=== PATIENT | male | born 1935 | race Caucasian/White ===

== ENCOUNTER 2019-10-11 08:13 | Day surgery (SDC) | payer MEDICARE, OTHER ==
[~2019-10-11 08:13] MED LIST: Acetaminophen/HYDROcodone 325-5 MG Tab PO PRN; Sodium Chloride 0.9% 10 ML Syringe FLUSH PRN
[2019-10-11] MEDS: Lactated Ringers 1,000 ML IV SCH (09:31)
[2019-10-11] MEDS: ceFAZolin 1 GM in Sodium Chloride 0.9% 50 ML IV ONE (10:15)
[2019-10-11] MEDS ORDERED: Propofol 200 MG/20 ML SDV ONE (10:30)
[2019-10-11 15:07] VITALS: BP 165/69; PULSE 81
--- NOTE | 2019-10-12 07:53 | OR ---
DATE OF OPERATION: 10/11/2019 SURGEON: Jefe Henson MD PREOPERATIVE DIAGNOSIS: Right carpal tunnel syndrome. POSTOPERATIVE DIAGNOSIS: Right carpal tunnel syndrome. PROCEDURE: Right carpal tunnel release. ANESTHESIA: Monitored anesthesia care. ESTIMATED BLOOD LOSS: Minimal. COMPLICATIONS: None apparent. SPECIMENS: None. DRAINS: None. DESCRIPTION OF PROCEDURE: After informed consent was obtained, the patient was brought to the operating room, where a general anesthetic was administered uneventfully. The right wrist was prepped and draped sterilely. A time-out was held, and antibiotics were confirmed. The limb was exsanguinated and the tourniquet inflated. An incision was made in line with the radial border of the ring finger from a line shy of Damian's cardinal line to the volar wrist crease. We dissected sharply through the skin and subcutaneous tissue and palmar aponeurosis down onto the transverse carpal ligament. This was released in its entirety from proximal to distal with distal aspect of the volar antebrachial fascia released with tenotomies. We inspected the median nerve and its motor branch, which were intact with no space-occupying lesions in the carpal canal. We copiously irrigated and closed with 4-0 nylon. Sterile dressings were applied. The patient was brought to recovery room in stable condition having tolerated the procedure well with no apparent complications. REBECA/MARKO /[id number]
== END 2019-10-11 12:25 | disposition home or self-care (01) ==
LOC: LB.SDS 08:13
PROVIDERS: ATTEND Orthopaedic Surgery
DX: G56.01 Carpal tunnel syndrome, right upper limb (principal)
CPT/HCPCS: J0690; J2704; J7050; J7120

== ENCOUNTER → 2019-10-18 | Outpatient (CLI) | payer MEDICARE, OTHER | LOC: LB.COAG 13:35 | PROVIDERS: ATTEND Family Medicine | DX: I48.91 Unspecified atrial fibrillation (principal); Z79.01 Long term (current) use of anticoagulants | CPT/HCPCS: 85610 ==

== ENCOUNTER 2021-04-13 10:24 | Emergency (ER) | payer MEDICARE, OTHER ==
[2021-04-13] MEDS ORDERED: Sodium Chloride 0.9% 10 ML Syringe FLUSH PRN (11:18)
[2021-04-13] MEDS ORDERED: Magnesium Sulfate/D5W 1 GM/100 ML Premix Bag IV SCH (11:30)
--- NOTE | 2021-04-13 11:42 | EDM.PDOC ---
ED HPI GENERAL MEDICAL PROBLEM - General Stated Complaint: ABNORMAL LABS Time Seen by Provider: 04/13/21 11:35 Source of Information: Reports: Patient, Family History Limitations: Reports: No Limitations - History of Present Illness INITIAL COMMENTS - FREE TEXT/NARRATIVE: 86 year old male with PMG of afib, HTN, hyperlipidemia, thyroid presents today after not feeling well for a few weeks. He was at clinic and had his labs done showing critically low Magnesium at 0.2. He denies any CP, abdominal pain, n/v, ROSAS, fever, sore throat. States he has been dizzy and weaker than normal. - Related Data Allergies Allergy/AdvReac Type Severity Reaction Status Date / Time No Known Allergies Allergy Verified 10/11/19 07:32 Home Meds: Home Meds Cyanocobalamin (Vitamin B-12) [B-12] 1,000 mcg PO DAILY 10/21/15 [History] Lisinopril 5 mg PO DAILY 10/21/15 [History] Metoprolol Succinate 50 mg PO DAILY 10/21/15 [History] Omeprazole 20 mg PO DAILY 10/21/15 [History] Simvastatin 60 mg PO DAILY 10/21/15 [History] Warfarin [Coumadin] 2.5 mg PO DAILY 10/21/15 [History] Levothyroxine 25 mcg PO DAILY 06/22/18 [History] hydroCHLOROthiazide [Hydrochlorothiazide] 25 mg PO DAILY 10/11/19 [History] Past Medical History Other HEENT History: glasses Cardiovascular History: Reports: Afib, Hypertension Gastrointestinal History: Reports: GERD Musculoskeletal History: Reports: Other (See Below) Other Musculoskeletal History: osteopenia. 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 Social & Family History - Family History Family Medical History: No Pertinent Family History - Caffeine Use Caffeine Use: Reports: Coffee ED ROS GENERAL - Review of Systems Review Of Systems: See Below Constitutional: Reports: No Symptoms Respiratory: Reports: No Symptoms Cardiovascular: Reports: Dyspnea on Exertion Endocrine: Reports: No Symptoms GI/Abdominal: Reports: Diarrhea : Reports: No Symptoms Musculoskeletal: Reports: No Symptoms Skin: Reports: No Symptoms Neurological: Reports: Dizziness Psychiatric: Reports: No Symptoms Hematologic/Lymphatic: Reports: No Symptoms Immunologic: Reports: No Symptoms ED EXAM, GENERAL - Physical Exam Exam: See Below Exam Limited By: No Limitations General Appearance: Alert, No Apparent Distress Eye Exam: Bilateral Eye: Normal Inspection, PERRL Ears: Normal External Exam, Normal Canal, Hearing Grossly Normal, Normal TMs Ear Exam: Bilateral Ear: Auricle Normal, Canal Normal, TM normal Nose: Normal Inspection, Normal Mucosa, No Blood Throat/Mouth: Normal Inspection, Normal Lips, Normal Oropharynx, Normal Voice, No Airway Compromise Head: Atraumatic Neck: Normal Inspection, Non-Tender, Full Range of Motion Respiratory/Chest: No Respiratory Distress, Lungs Clear, Normal Breath Sounds, No Accessory Muscle Use, Chest Non-Tender Cardiovascular: Normal Peripheral Pulses, No Edema, No JVD, No Murmur, Irregularly Irregular Peripheral Pulses: 3+: Carotid (L), Carotid (R), Radial (L), Radial (R), Posterior Tibial (L), Posterior Tibial (R), Dorsalis Pedis (L), Dorsalis Pedis (R) GI/Abdominal: Normal Bowel Sounds, Soft, Non-Tender, No Distention (Male) Exam: Deferred Rectal (Males) Exam: Deferred Back Exam: Normal Inspection, Full Range of Motion Extremities: Normal Inspection, Non-Tender, No Pedal Edema, Normal Capillary Refill, Limited Range of Motion, Other (bilateral shoulder pain, chronic) Neurological: Alert, Oriented, CN II-XII Intact, Normal Cognition, Normal Gait, Normal Reflexes (no hyperreflexes), No Motor/Sensory Deficits Psychiatric: Normal Affect, Normal Mood Skin Exam: Warm, Dry, Intact, Normal Color, No Rash Lymphatic: No Adenopathy Course - Vital Signs Last Recorded V/S: Last Vital Signs Temp 98.0 F 04/13/21 11:45 Pulse 82 04/13/21 11:45 Resp 28 H 04/13/21 11:45 BP 122/78 04/13/21 11:45 Pulse Ox 95 04/13/21 11:45 - Orders/Labs/Meds Orders: Active Orders 24 hr Category Date Time Status EKG Documentation Completion [RC] ASDIRECTED Care 04/13/21 11:18 Active Magnesium Sulfate/D5W [Magnesium Sulfate in D5W 1 GM/ Med 04/13/21 11:30 Active 100 ML] 1 gm IV DAILY Sodium Chloride 0.9% [Saline Flush] Med 04/13/21 11:18 Active 10 ml FLUSH ASDIRECTED PRN Peripheral IV Insertion Adult [OM.PC] Routine Oth 04/13/21 11:18 Ordered EKG 12 Lead [EK] Routine Ther 04/13/21 11:18 Ordered Medication Orders Magnesium Sulfate/Dextrose (Magnesium Sulfate/D5w 1 Gm/100 Ml Premix Bag) 1 gm IV DAILY GERALD Last Admin: 04/13/21 11:30 Dose: 1 gm Documented by: ROSEANN Sodium Chloride (Sodium Chloride 0.9% 10 Ml Syringe) 10 ml FLUSH ASDIRECTED PRN PRN Reason: Keep Vein Open Last Admin: 04/13/21 11:40 Dose: 10 ml Documented by: ROSEANN Labs: Laboratory Tests 04/13/21 04/13/21 04/13/21 Range/Units 09:05 11:39 11:44 WBC 8.8 (4.0-11.0) K/uL RBC 3.97 L (4.50-6.50) M/uL Hgb 12.4 L (13.0-18.0) g/dL Hct 38.7 L (40.0-54.0) % MCV 98 H (76-96) fL MCH 31.2 (27.0-32.0) pg MCHC 32.0 (31.0-35.0) g/dL RDW 13.1 (11.0-16.0) % Plt Count 233 (150-400) K/uL MPV 11.1 H (6.0-10.0) fL Neut % (Auto) 59.4 (45.0-70.0) % Lymph % (Auto) 29.0 (20.0-40.0) % [place] % (Auto) 10.3 H (3.0-10.0) % Eos % (Auto) 1.0 (1.0-5.0) % Baso % (Auto) 0.3 (0.0-0.5) % Neut # (Auto) 5.21 (2.00-7.50) K/uL Lymph # (Auto) 2.54 (1.50-4.00) K/uL [place] # (Auto) 0.90 H (0.20-0.80) K/uL Eos # (Auto) 0.09 (0.04-0.40) K/uL Baso # (Auto) 0.03 (0.02-0.10) K/uL PT 60.7 H D (9.0-11.5) sec INR 6.1 H* D (1.0-3.5) Sodium 131 L (136-145) mmol/L Potassium 2.7 L* D (3.5-5.1) mmol/L Chloride 96 L (98-107) mmol/L Carbon Dioxide 26.8 (21.0-32.0) mmol/L Anion Gap 10.9 (5.0-15.0) mmol/L BUN 32 H D (8-26) mg/dL Creatinine 1.22 (0.70-1.30) mg/dL Est Cr Clr Drug Dosing TNP Estimated GFR (MDRD) 56 L (>60) MLS/MIN BUN/Creatinine Ratio 26.2 H (6-25) Glucose 82 (74-100) mg/dL Calcium 6.8 L (8.5-10.1) mg/dL Magnesium 0.2 L* (1.8-2.4) mg/dL Total Bilirubin 1.2 H (0.0-1.0) mg/dL AST 28 (15-37) U/L ALT 14 (12-78) U/L Alkaline Phosphatase 82 (46-116) U/L Troponin I < 0.017 (0.000-0.060) ng/mL B-Natriuretic Peptide 1699 H (0-450) pg/mL Total Protein 8.2 (6.4-8.2) g/dL Albumin 3.5 (3.4-5.0) g/dL Globulin 4.7 H (2.2-4.2) g/dL Albumin/Globulin Ratio 0.7 L (0.8-2.0) TSH, Ultra Sensitive 3.628 (0.358-3.740) uIU/mL SARS-CoV-2 RNA (CORNELIUS) (NEGATIVE) 04/13/21 Range/Units 13:00 WBC (4.0-11.0) K/uL RBC (4.50-6.50) M/uL Hgb (13.0-18.0) g/dL Hct (40.0-54.0) % MCV (76-96) fL MCH (27.0-32.0) pg MCHC (31.0-35.0) g/dL RDW (11.0-16.0) % Plt Count (150-400) K/uL MPV (6.0-10.0) fL Neut % (Auto) (45.0-70.0) % Lymph % (Auto) (20.0-40.0) % [place] % (Auto) (3.0-10.0) % Eos % (Auto) (1.0-5.0) % Baso % (Auto) (0.0-0.5) % Neut # (Auto) (2.00-7.50) K/uL Lymph # (Auto) (1.50-4.00) K/uL [place] # (Auto) (0.20-0.80) K/uL Eos # (Auto) (0.04-0.40) K/uL Baso # (Auto) (0.02-0.10) K/uL PT (9.0-11.5) sec INR (1.0-3.5) Sodium (136-145) mmol/L Potassium (3.5-5.1) mmol/L Chloride (98-107) mmol/L Carbon Dioxide (21.0-32.0) mmol/L Anion Gap (5.0-15.0) mmol/L BUN (8-26) mg/dL Creatinine (0.70-1.30) mg/dL Est Cr Clr Drug Dosing Estimated GFR (MDRD) (>60) MLS/MIN BUN/Creatinine Ratio (6-25) Glucose (74-100) mg/dL Calcium (8.5-10.1) mg/dL Magnesium (1.8-2.4) mg/dL Total Bilirubin (0.0-1.0) mg/dL AST (15-37) U/L ALT (12-78) U/L Alkaline Phosphatase (46-116) U/L Troponin I (0.000-0.060) ng/mL B-Natriuretic Peptide (0-450) pg/mL Total Protein (6.4-8.2) g/dL Albumin (3.4-5.0) g/dL Globulin (2.2-4.2) g/dL Albumin/Globulin Ratio (0.8-2.0) TSH, Ultra Sensitive (0.358-3.740) uIU/mL SARS-CoV-2 RNA (CORNELIUS) Negative (NEGATIVE) Meds: Medications Generic Name Dose Route Start Last Admin Trade Name Trang PRN Reason Stop Dose Admin Magnesium Sulfate/Dextrose 1 gm 04/13/21 11:30 04/13/21 11:30 Magnesium Sulfate/D5w 1 Gm/100 Ml Premix Bag IV 1 gm DAILY GERALD Administration Sodium Chloride 10 ml 04/13/21 11:18 04/13/21 11:40 Sodium Chloride 0.9% 10 Ml Syringe FLUSH 10 ml ASDIRECTED PRN Administration Keep Vein Open Discontinued Medications Generic Name Dose Route Start Last Admin Trade Name Trang PRN Reason Stop Dose Admin Potassium Chloride 10 meq/ 50 mls @ 50 mls/hr 04/13/21 12:37 04/13/21 12:35 Premix IV 04/13/21 13:36 50 mls/hr ONETIME ONE Administration Potassium Chloride 10 meq/ 50 mls @ 50 mls/hr 04/13/21 13:29 04/13/21 13:30 Premix IV 04/13/21 14:28 50 mls/hr ONETIME ONE Administration Potassium Chloride Confirm 04/13/21 13:42 Kcl In Water 10 Meq/50 Ml Administered 04/13/21 13:43 Dose 50 mls @ as directed .ROUTE .STK-MED ONE Potassium Chloride Confirm 04/13/21 14:38 Kcl In Water 10 Meq/50 Ml Administered 04/13/21 14:39 Dose 50 mls @ as directed .ROUTE .STK-MED ONE Magnesium Sulfate/Dextrose Confirm 04/13/21 14:51 Magnesium Sulfate In D5w 1 Gm/100 Ml Administered 04/13/21 14:52 Dose 1 gm in 100 mls @ as directed .ROUTE .STK-MED ONE Magnesium Sulfate/Dextrose 1 gm 04/13/21 13:15 04/13/21 13:58 Magnesium Sulfate/D5w 1 Gm/100 Ml Premix Bag IV 04/13/21 13:16 1 gm ONETIME ONE Administration Potassium Chloride 40 meq 04/13/21 12:36 04/13/21 12:30 Potassium Chloride 20 Meq Tab.Er PO 04/13/21 12:37 40 meq ONETIME ONE Administration Departure - Departure Time of Disposition: 14:56 Disposition: DC/Tfer to Acute Hospital 02 Condition: Good Clinical Impression: CHF, Congestive heart failure, Hypokalemia, Hypomagnesemia, Prolonged QT syndrome, Hypocalcemia, Anticoagulated on Coumadin - Discharge Information *PRESCRIPTION DRUG MONITORING PROGRAM REVIEWED*: Not Applicable *COPY OF PRESCRIPTION DRUG MONITORING REPORT IN PATIENT ABISAI: Not Applicable Instructions: Heart Failure, Self Care, Aflp-gb-Dews, Hypomagnesemia, H ypokalemia, Hypocalcemia, Adult Referrals: PCP,None [Primary Care Provider] - Sepsis Event Note (ED) - Focused Exam Vital Signs: Vital Signs Temp Pulse Resp BP Pulse Ox 04/13/21 11:45 98.0 F 82 28 H 122/78 95 - My Orders Last 24 Hours: My Active Orders 04/13/21 11:18 EKG Documentation Completion [RC] ASDIRECTED Sodium Chloride 0.9% [Saline Flush] 10 ml FLUSH ASDIRECTED PRN Peripheral IV Insertion Adult [OM.PC] Routine EKG 12 Lead [EK] Routine 04/13/21 11:30 Magnesium Sulfate/D5W [Magnesium Sulfate in D5W 1 GM/100 ML] 1 gm IV DAILY - Assessment/Plan Last 24 Hours: My Active Orders 04/13/21 11:18 EKG Documentation Completion [RC] ASDIRECTED Sodium Chloride 0.9% [Saline Flush] 10 ml FLUSH ASDIRECTED PRN Peripheral IV Insertion Adult [OM.PC] Routine EKG 12 Lead [EK] Routine 04/13/21 11:30 Magnesium Sulfate/D5W [Magnesium Sulfate in D5W 1 GM/100 ML] 1 gm IV DAILY Plan: Spoke with Dr. Mcmahon in [place], he is accepting the patient. He will fly and continue magnesium and potassium replacements infusing.
[2021-04-13] MEDS ORDERED: Potassium Chloride 20 MEQ Tab.ER PO ONE (12:36)
[2021-04-13] MEDS ORDERED: Potassium Chloride Riders 10 MEQ in Premix Bag 1 BAG IV ONE ×2 (12:37→13:29)
[2021-04-13 12:56] VITALS: BP 122/78; PULSE 82
[2021-04-13] MEDS: Magnesium Sulfate/D5W 1 GM/100 ML Premix Bag IV ONE ×2 (13:30→13:58)
[2021-04-13] MEDS ORDERED: Potassium Chloride Riders 50 ML ONE ×2 (13:42→14:38)
--- NOTE | 2021-04-13 13:49 | PCM.EKG ---
#1 Interpretation EKG Date: 04/13/21 Time: 11:47 Rhythm: A-Fib Rate (Beats/Min): 92 QT: Prolonged Comparison: Change From Previous EKG EKG Interpretation Comments: prolonged QT/QTC
[2021-04-13] MEDS ORDERED: Magnesium Sulfate/D5W 1 GM/100 ML BAG ONE (14:51)
== END 2021-04-13 15:10 ==
LOC: LB.ED 10:24
DX: I11.0 Hypertensive heart disease with heart failure (principal); I50.9 Heart failure, unspecified; E87.6 Hypokalemia; E83.42 Hypomagnesemia; E83.51 Hypocalcemia; R94.31 Abnormal electrocardiogram [ECG] [EKG]; K21.9 Gastro-esophageal reflux disease without esophagitis; I48.91 Unspecified atrial fibrillation; Z79.01 Long term (current) use of anticoagulants; Z79.899 Other long term (current) drug therapy; Z20.822 Contact with and (suspected) exposure to COVID-19
CPT/HCPCS: 36415; 80053; 82040; 82550; 83735; 83880; 83970; 84075; 84443; 84484; 85025; 85610; 93005; 96365; 96366; 96375; 99285; 99285-25; A9270-GY; J3475; J3480; U0002

== ENCOUNTER 2021-04-18 10:58 | Inpatient (IN) | payer MEDICARE, OTHER ==
[2021-04-19] MEDS ORDERED: Tuberculin, PPD 5 Units/0.1 ML 1 ML MDV IDERM ONE (15:04)
[2021-04-19] MEDS: Multivitamins with Iron/Calcium/Folic Acid/Minerals Tab PO SCH (20:00)
[2021-04-19] MEDS: metroNIDAZOLE 500 MG Tab PO SCH (20:04)
[2021-04-19] MEDS: Magnesium Oxide 400 MG Tab PO SCH (20:04)
[2021-04-19] MEDS: levETIRAcetam 500 MG Tab PO SCH (20:04)
[2021-04-20] MEDS: Omeprazole 20 MG Cap.CR PO SCH (07:15)
[2021-04-20] MEDS: Levothyroxine 25 MCG Tab PO SCH (07:15)
[2021-04-20] MEDS: Simvastatin 20 MG Tab PO SCH (08:12)
[2021-04-20] MEDS: Thiamine 100 MG Tab PO SCH (08:12)
[2021-04-20] MEDS: levETIRAcetam 500 MG Tab PO SCH ×2 (08:13→19:08)
[2021-04-20] MEDS: metroNIDAZOLE 500 MG Tab PO SCH ×3 (08:13→19:10)
[2021-04-20] MEDS: Magnesium Oxide 400 MG Tab PO SCH ×2 (08:13→19:09)
[2021-04-20] MEDS: Folic Acid 1 MG Tab PO SCH (08:13)
[2021-04-20] MEDS: Metoprolol Succinate 50 MG Tab.ER PO SCH (08:13)
[2021-04-20] MEDS: Lisinopril 10 MG Tab PO SCH (08:14)
[2021-04-20] MEDS: Cyanocobalamin (Vitamin B12) 1,000 MCG Tab PO SCH (08:17)
[2021-04-20] MEDS: Multivitamins with Iron/Calcium/Folic Acid/Minerals Tab PO SCH ×2 (08:17→19:09)
--- NOTE | 2021-04-20 08:43 | ADMIT ---
Transferred from [facility]. ADMITTING DIAGNOSIS: Hypomagnesemia and seizure disorder. HISTORY OF PRESENT ILLNESS: This is an 86-year-old male patient, who was previously seen at this clinic. In the recent past, he was having difficulty with magnesium levels being extremely low. He was contacted by clinic to present to the emergency department for evaluation and treatment. At that time, he was airlifted to [place] where his condition was managed. During helicopter transport, apparently did have seizure and that was addressed in [facility] too. He was admitted to swing bed at this institution today feeling relatively well without any major concerns or complaints other than chest tenderness after CPR. PAST MEDICAL HISTORY: Notable for: 1. GERD. 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 3. CHF. 4. Ongoing electrolyte imbalance. 5. Hyperlipidemia. 6. Hypertension. 7. Hypocalcemia. 8. DJD. 9. Osteopenia. 10.Subclinical hypothyroidism. MEDICATIONS: See orders from transfer from [facility]. ALLERGIES: NONE. REVIEW OF SYSTEMS: As per HPI above. Otherwise, he is without complaints. He did have aspiration pneumonia and treated; however, he states he is breathing relatively well at this time. PHYSICAL EXAMINATION: VITAL SIGNS: Reviewed in nursing notes. GENERAL APPEARANCE: Satisfactory. Mood and affect are bright and happy. HEAD AND NECK: No JVD noted. CARDIOPULMONARY: Heart tones regular with normal S1, S2 without murmur. LUNGS: Sounds are generally clear with minimal rhonchi over large airways. ABDOMEN: Benign. Bowel sounds are present. He does have some tenderness to palpation over the anterior chest wall consistent with costochondritis. I have not reviewed any x-rays for evidence of fracture. IMPRESSIONS: Admission to swing bed for recovery from low magnesium, seizure disorder and cardiac dysfunction. SITA/MARKO /[id number]
[2021-04-20] MEDS: Acetaminophen 325 MG Tab PO PRN (13:33)
[2021-04-20] MEDS: Warfarin 5 MG Tab PO SCH (17:31)
[2021-04-21] MEDS: Omeprazole 20 MG Cap.CR PO SCH (07:18)
[2021-04-21] MEDS: Acetaminophen 325 MG Tab PO PRN ×3 (07:18→19:33)
[2021-04-21] MEDS: Levothyroxine 25 MCG Tab PO SCH (07:18)
[2021-04-21] MEDS: Simvastatin 20 MG Tab PO SCH (08:18)
[2021-04-21] MEDS: Magnesium Oxide 400 MG Tab PO SCH ×2 (08:18→19:32)
[2021-04-21] MEDS: Thiamine 100 MG Tab PO SCH (08:18)
[2021-04-21] MEDS: Metoprolol Succinate 50 MG Tab.ER PO SCH (08:19)
[2021-04-21] MEDS: levETIRAcetam 500 MG Tab PO SCH ×2 (08:19→19:32)
[2021-04-21] MEDS: Lisinopril 10 MG Tab PO SCH (08:19)
[2021-04-21] MEDS: metroNIDAZOLE 500 MG Tab PO SCH ×3 (08:19→19:33)
[2021-04-21] MEDS: Multivitamins with Iron/Calcium/Folic Acid/Minerals Tab PO SCH ×2 (08:19→19:32)
[2021-04-21] MEDS: Folic Acid 1 MG Tab PO SCH (08:19)
[2021-04-21] MEDS: Cyanocobalamin (Vitamin B12) 1,000 MCG Tab PO SCH (08:20)
[2021-04-21] MEDS: Warfarin 5 MG Tab PO SCH (17:10)
[2021-04-22] MEDS: Acetaminophen 325 MG Tab PO PRN ×3 (04:47→19:05)
[2021-04-22] MEDS: Omeprazole 20 MG Cap.CR PO SCH (06:27)
[2021-04-22] MEDS: Levothyroxine 25 MCG Tab PO SCH (06:27)
[2021-04-22] MEDS: Thiamine 100 MG Tab PO SCH (07:55)
[2021-04-22] MEDS: Simvastatin 20 MG Tab PO SCH (07:55)
[2021-04-22] MEDS: Multivitamins with Iron/Calcium/Folic Acid/Minerals Tab PO SCH ×2 (07:55→19:06)
[2021-04-22] MEDS: Lisinopril 10 MG Tab PO SCH (07:56)
[2021-04-22] MEDS: metroNIDAZOLE 500 MG Tab PO SCH ×3 (07:56→19:06)
[2021-04-22] MEDS: Metoprolol Succinate 50 MG Tab.ER PO SCH (07:56)
[2021-04-22] MEDS: levETIRAcetam 500 MG Tab PO SCH ×2 (07:56→19:07)
[2021-04-22] MEDS: Folic Acid 1 MG Tab PO SCH (07:56)
[2021-04-22] MEDS: Cyanocobalamin (Vitamin B12) 1,000 MCG Tab PO SCH (07:58)
[2021-04-22] MEDS: Magnesium Oxide 400 MG Tab PO SCH ×2 (08:01→17:16)
[2021-04-22] MEDS: Lactobacillus Acidophilus/Lactobacillus Sporogenes (Probiotic) Tab PO SCH (12:56)
[2021-04-22] MEDS: Warfarin 5 MG Tab PO SCH (17:13)
[2021-04-23] MEDS: Acetaminophen 325 MG Tab PO PRN ×2 (02:09→08:11)
[2021-04-23] MEDS: Omeprazole 20 MG Cap.CR PO SCH (06:08)
[2021-04-23] MEDS: Levothyroxine 25 MCG Tab PO SCH (06:08)
[2021-04-23] MEDS: Simvastatin 20 MG Tab PO SCH (08:08)
[2021-04-23] MEDS: levETIRAcetam 500 MG Tab PO SCH (08:08)
[2021-04-23] MEDS: Thiamine 100 MG Tab PO SCH (08:09)
[2021-04-23] MEDS: metroNIDAZOLE 500 MG Tab PO SCH (08:09)
[2021-04-23] MEDS: Lisinopril 10 MG Tab PO SCH (08:09)
[2021-04-23] MEDS: Lactobacillus Acidophilus/Lactobacillus Sporogenes (Probiotic) Tab PO SCH (08:09)
[2021-04-23] MEDS: Multivitamins with Iron/Calcium/Folic Acid/Minerals Tab PO SCH (08:09)
[2021-04-23] MEDS: Folic Acid 1 MG Tab PO SCH (08:09)
[2021-04-23] MEDS: Metoprolol Succinate 50 MG Tab.ER PO SCH (08:10)
[2021-04-23] MEDS: Cyanocobalamin (Vitamin B12) 1,000 MCG Tab PO SCH (08:11)
[2021-04-23 08:12] VITALS: BP 140/84; PULSE 100
[2021-04-23] MEDS: Magnesium Oxide 400 MG Tab PO SCH (08:18)
--- NOTE | 2021-04-23 10:24 | PCM.DCSUM1 ---
Discharge Summary - Discharge Data Discharge Date: 04/23/21 Discharge Disposition: Home, Self-Care 01 Condition: Good - Referral to Home Health Primary Care Physician: Tarik Cline MD - Patient Summary/Data Consults: Consultations 04/19/21 14:32 OT Evaluation and Treatment [CONS] Routine Please Evaluate and Treat. OT Reason for Consult: ADL's This query below is only for informational purposes and is not editable. Admission Diagnosis/Problem: Weakness PT Evaluation and Treatment [CONS] Routine Please Evaluate and Treat. PT Reason for Consult: Strengthening This query below is only for informational purposes and is not editable. Admission Diagnosis/Problem: Weakness - Patient Instructions Diet: Usual Diet as Tolerated Activity: As Tolerated Driving: Do Not Drive - Discharge Plan Home Medications: Home Meds Metoprolol Succinate 50 mg PO DAILY 10/21/15 [History] Simvastatin 60 mg PO DAILY 10/21/15 [History] Cefuroxime Axetil [Ceftin] 500 mg PO BID 04/19/21 [History] Cyanocobalamin (Vitamin B-12) [Vitamin B-12] 1,000 mcg PO DAILY 04/19/21 [History] Folic Acid 1 mg PO DAILY 04/19/21 [History] Levothyroxine 25 mcg PO ACBREAKFAST 04/19/21 [History] Magnesium Oxide 400 mg PO BID 04/19/21 [History] Multivitamin 1 each PO BID 04/19/21 [History] Omeprazole 20 mg PO DAILY 04/19/21 [History] Sildenafil Citrate [Viagra] 100 mg PO DAILY PRN 04/19/21 [History] Thiamine [Vitamin B-1] 100 mg PO DAILY 04/19/21 [History] Warfarin [Coumadin] 5 mg PO DAILY 04/19/21 [History] levETIRAcetam [Keppra] 1,000 mg PO BID 04/19/21 [History] lisinopriL [Lisinopril] 10 mg PO DAILY 04/19/21 [History] metroNIDAZOLE [Flagyl] 500 mg PO TID 04/19/21 [History] - Discharge Summary/Plan Comment DC Time >30 min.: No Discharge Summary/Plan Comment: Patient to f/u as directed with PCP. Continue current medications, antibiotics and anti-seizure meds. Continue supplements as directed. PT evaluation and management ordered. - Patient Data Vitals - Most Recent: Last Vital Signs Temp 36.2 C 04/22/21 19:55 Pulse 100 04/23/21 08:10 Resp 20 04/22/21 19:55 BP 140/84 04/23/21 08:10 Pulse Ox 98 04/22/21 19:55 Weight - Most Recent: 67.132 kg Lab Results - Last 24 hrs: Laboratory Results - last 24 hr 04/23/21 04/23/21 Range/Units 08:10 08:10 PT 52.2 H D (9.0-11.5) sec INR 5.2 H* D (1.0-3.5) Magnesium 1.1 L (1.8-2.4) mg/dL Med Orders - Current: Current Medications Acetaminophen (Acetaminophen 325 Mg Tab) 650 mg PO Q6H PRN PRN Reason: Pain Last Admin: 04/23/21 08:11 Dose: 650 mg Documented by: Cefuroxime Axetil (Cefuroxime 500 Mg Tab) 500 mg PO BID [facility] Stop: 04/25/21 23:59 Last Admin: 04/23/21 08:08 Dose: 500 mg Documented by: Cyanocobalamin (Cyanocobalamin (Vitamin B12) 1,000 Mcg Tab) 1,000 mcg PO DAILY [facility] Last Admin: 04/23/21 08:11 Dose: 1,000 mcg Documented by: Folic Acid (Folic Acid 1 Mg Tab) 1 mg PO DAILY [facility] Last Admin: 04/23/21 08:09 Dose: 1 mg Documented by: Lactobacillus Acidophilus (Lactobacillus Acidophilus/Lactobacillus Sporogenes (Probiotic) Tab) 1 tab PO DAILY [facility] Last Admin: 04/23/21 08:09 Dose: 1 tab Documented by: Levetiracetam (Levetiracetam 500 Mg Tab) 1,000 mg PO BID [facility] Last Admin: 04/23/21 08:08 Dose: 1,000 mg Documented by: Levothyroxine Sodium (Levothyroxine 25 Mcg Tab) 25 mcg PO ACBREAKFAST [facility] Last Admin: 04/23/21 06:08 Dose: 25 mcg Documented by: Lisinopril (Lisinopril 10 Mg Tab) 10 mg PO DAILY [facility] Last Admin: 04/23/21 08:09 Dose: 10 mg Documented by: Magnesium Oxide (Magnesium Oxide 400 Mg Tab) 800 mg PO 0800,1730 [facility] Last Admin: 04/23/21 08:18 Dose: 800 mg Documented by: Metoprolol Succinate (Metoprolol Succinate 50 Mg Tab.Er) 50 mg PO DAILY [facility] Last Admin: 04/23/21 08:10 Dose: 50 mg Documented by: Metronidazole (Metronidazole 500 Mg Tab) 500 mg PO TID [facility] Stop: 04/25/21 23:59 Last Admin: 04/23/21 08:09 Dose: 500 mg Documented by: Multivitamins/Minerals (Multivitamins With Iron/Calcium/Folic Acid/Minerals Tab) 1 tab PO BID [facility] Last Admin: 04/23/21 08:09 Dose: 1 tab Documented by: Omeprazole (Omeprazole 20 Mg Cap.Cr) 20 mg PO DAILY@0700 [facility] Last Admin: 04/23/21 06:08 Dose: 20 mg Documented by: Simvastatin (Simvastatin 20 Mg Tab) 60 mg PO DAILY [facility] Last Admin: 04/23/21 08:08 Dose: 60 mg Documented by: Thiamine HCl (Thiamine 100 Mg Tab) 100 mg PO DAILY [facility] Last Admin: 04/23/21 08:09 Dose: 100 mg Documented by: Warfarin Sodium (Warfarin 5 Mg Tab) 5 mg PO DAILY@1800 [facility] Last Admin: 04/22/21 17:13 Dose: 5 mg Documented by: Discontinued Medications Magnesium Oxide (Magnesium Oxide 400 Mg Tab) 400 mg PO BID [facility] Last Admin: 04/20/21 08:13 Dose: 400 mg Documented by: Magnesium Oxide (Magnesium Oxide 400 Mg Tab) 800 mg PO BID [facility] Last Admin: 04/21/21 19:32 Dose: 800 mg Documented by: Tuberculin PPD (Tuberculin, Ppd 5 Units/0.1 Ml 1 Ml Mdv) 5 unit IDERM ONETIME ONE Stop: 04/19/21 15:05 Last Admin: 04/19/21 18:01 Dose: 5 unit Documented by:
== END 2021-04-23 13:10 | disposition home or self-care (01) | DRG 101 ==
LOC: UNDOADMIN 04-19 13:40 → LB.MS 04-19 13:40
PROVIDERS: ADMIT Family Medicine; ATTEND Family Medicine
DX: G40.909 Epilepsy, unspecified, not intractable, without status epilepticus (principal); E83.42 Hypomagnesemia; K21.9 Gastro-esophageal reflux disease without esophagitis; R53.1 Weakness; I48.91 Unspecified atrial fibrillation; I50.9 Heart failure, unspecified; E78.5 Hyperlipidemia, unspecified; I11.0 Hypertensive heart disease with heart failure; E83.51 Hypocalcemia; M85.80 Other specified disorders of bone density and structure, unspecified site; E03.9 Hypothyroidism, unspecified; I51.89 Other ill-defined heart diseases; Z20.822 Contact with and (suspected) exposure to COVID-19
CPT/HCPCS: 36415; 83735; 85610; 86580; 97161-GP; 97165-GO; 97530-GP; 97535-GO; A9270-GY; U0002

== ENCOUNTER 2021-07-04 11:12 | Emergency (ER) | payer MEDICARE, OTHER ==
[2021-07-04 12:01] VITALS: BP 118/78; PULSE 73
--- NOTE | 2021-07-04 12:07 | EDM.PDOC ---
ED HPI GENERAL MEDICAL PROBLEM - General Stated Complaint: L SIDE WEAKNESS Time Seen by Provider: 07/04/21 11:44 Source of Information: Reports: Patient History Limitations: Reports: No Limitations - History of Present Illness INITIAL COMMENTS - FREE TEXT/NARRATIVE: pt arrives via EMS. he states he noted left calf weakness this morning approximately 1000 and feelings of "numbness" distal to knee which made ambulating difficult. he denies slurred speech, upper extremity weakness, facial drooping, fever, SOB, nausea, chest pain. chart review shows recent hospitalization for hypomag of 0.2. Onset: Today - Related Data Allergies Allergy/AdvReac Type Severity Reaction Status Date / Time No Known Allergies Allergy Verified 07/04/21 12:06 Home Meds: Home Meds Metoprolol Succinate 50 mg PO DAILY 10/21/15 [History] Simvastatin 60 mg PO DAILY 10/21/15 [History] Cyanocobalamin (Vitamin B-12) [Vitamin B-12] 1,000 mcg PO DAILY 04/19/21 [History] Folic Acid 1 mg PO DAILY 04/19/21 [History] Levothyroxine 25 mcg PO ACBREAKFAST 04/19/21 [History] Magnesium Oxide 400 mg PO BID 04/19/21 [History] Multivitamin 1 each PO BID 04/19/21 [History] Omeprazole 20 mg PO DAILY 04/19/21 [History] Sildenafil Citrate [Viagra] 100 mg PO DAILY PRN 04/19/21 [History] Thiamine [Vitamin B-1] 100 mg PO DAILY 04/19/21 [History] Warfarin [Coumadin] 5 mg PO DAILY 04/19/21 [History] Past Medical History HEENT History: Reports: Impaired Vision Other HEENT History: glasses Cardiovascular History: Reports: Afib, Hypertension, Prior Cardiac Arrest Other Respiratory History: Hx pneumonia Gastrointestinal History: Reports: GERD Musculoskeletal History: Reports: Osteoarthritis, Other (See Below) Other Musculoskeletal History: osteopenia. 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 ED EXAM, GENERAL - Physical Exam Exam: See Below Exam Limited By: No Limitations General Appearance: Alert, WD/WN, No Apparent Distress Eye Exam: Bilateral Eye: EOMI, PERRL Throat/Mouth: Normal Inspection, Normal Lips, Normal Oropharynx, Other (tongue midline) Respiratory/Chest: No Respiratory Distress, Lungs Clear, Normal Breath Sounds, No Accessory Muscle Use, Chest Non-Tender Cardiovascular: Normal Peripheral Pulses, No Murmur, Irregularly Irregular Peripheral Pulses: 2+: Radial (L), Radial (R), Posterior Tibial (L), Posterior Tibial (R), Dorsalis Pedis (L), Dorsalis Pedis (R) Extremities: Normal Inspection, Normal Range of Motion, Non-Tender, No Pedal Edema Neurological: Alert, Oriented, CN II-XII Intact, Normal Cognition, Normal Gait, Normal Reflexes, No Motor/Sensory Deficits Psychiatric: Normal Affect, Normal Mood Skin Exam: Warm, Dry, Intact, No Rash #1 Interpretation EKG Date: 07/04/21 Time: 11:55 Rhythm: A-Fib [place]: Normal QRS: Normal ST-T: Normal QT: Normal Comparison: NA - No Prior EKG EKG Interpretation Comments: atrial fib, no ST elevation or depression. no Q waves noted. Course - Vital Signs Last Recorded V/S: Last Vital Signs Temp 98 F 07/04/21 11:44 Pulse 73 07/04/21 12:01 Resp 18 07/04/21 12:01 BP 118/78 07/04/21 12:01 Pulse Ox 97 07/04/21 12:01 - Orders/Labs/Meds Orders: Active Orders 24 hr Category Date Time Status EKG Documentation Completion [RC] ASDIRECTED Care 07/04/21 11:22 Ordered POC Glucose [Blood Glucose Check, Bedside] [RC] ONETIME Care 07/04/21 11:20 Ordered CBC WITH AUTO DIFF [HEME] Stat Lab 07/04/21 11:19 Ordered COMPREHENSIVE METABOLIC PN,CMP [CHEM] Stat Lab 07/04/21 11:19 Ordered MAGNESIUM [CHEM] Stat Lab 07/04/21 11:20 Ordered EKG 12 Lead [EK] Routine Ther 07/04/21 11:22 Ordered Departure - Departure Time of Disposition: 12:40 Disposition: Home, Self-Care 01 Condition: Good Clinical Impression: TIA (transient ischemic attack) - Discharge Information *PRESCRIPTION DRUG MONITORING PROGRAM REVIEWED*: Not Applicable *COPY OF PRESCRIPTION DRUG MONITORING REPORT IN PATIENT ABISAI: Not Applicable Instructions: Transient Ischemic Attack, [id number] Additional Instructions: follow up in the clinic after MRI for results today I believe you had a TIA and although symptoms had completely resolved, you are at risk for stroke. CT of your head would not show structures as well as an MRI as your symptoms had completely resolved. MRI ordered from ER. if new symptoms of weakness occur, return to the ER for a recheck without hesitation. otherwise labs look improved from your previous ER visit. Sepsis Event Note (ED) - Evaluation Sepsis Screening Result: No Definite Risk - Focused Exam Vital Signs: Vital Signs Temp Pulse Resp BP Pulse Ox 07/04/21 12:01 73 18 118/78 97 07/04/21 11:44 98 F 90 141/82 H 98 - Problem List & Annotations (1) TIA (transient ischemic attack) SNOMED Code(s): 505824189 Code(s): G45.9 - TRANSIENT CEREBRAL ISCHEMIC ATTACK, UNSPECIFIED Status: Acute Current Visit: Yes - Problem List Review Problem List Initiated/Reviewed/Updated: Yes - My Orders Last 24 Hours: My Active Orders 07/04/21 11:19 CBC WITH AUTO DIFF [HEME] Stat COMPREHENSIVE METABOLIC PN,CMP [CHEM] Stat 07/04/21 11:20 POC Glucose [Blood Glucose Check, Bedside] [RC] ONETIME MAGNESIUM [CHEM] Stat 07/04/21 11:22 EKG Documentation Completion [RC] ASDIRECTED EKG 12 Lead [EK] Routine - Assessment/Plan Last 24 Hours: My Active Orders 07/04/21 11:19 CBC WITH AUTO DIFF [HEME] Stat COMPREHENSIVE METABOLIC PN,CMP [CHEM] Stat 07/04/21 11:20 POC Glucose [Blood Glucose Check, Bedside] [RC] ONETIME MAGNESIUM [CHEM] Stat 07/04/21 11:22 EKG Documentation Completion [RC] ASDIRECTED EKG 12 Lead [EK] Routine Assessment:: assessment: TIA plan: follow up in clinic in 48hr, MRI brain in 24 hour. this plan discussed with pt and family along with return precautions of neuro deficits. as symptoms had completely resolved and no deficits are noted on exam. lab results and EKG show improvements from past evaluations. pt is good candidate for outpatient TIA workup.
== END 2021-07-04 13:00 | disposition home or self-care (01) ==
LOC: LB.ED 11:12
DX: G45.9 Transient cerebral ischemic attack, unspecified (principal); I48.91 Unspecified atrial fibrillation; K21.9 Gastro-esophageal reflux disease without esophagitis; E03.9 Hypothyroidism, unspecified; I10 Essential (primary) hypertension; Z79.01 Long term (current) use of anticoagulants; Z79.899 Other long term (current) drug therapy
CPT/HCPCS: 36415; 80053; 82947; 83735; 84443; 85025; 85610; 93005; 99285-25; A0425; A0429

== ENCOUNTER 2022-04-11 08:26 | Inpatient (IN) | payer MEDICARE, OTHER ==
[2022-04-11] MEDS ORDERED: Magnesium Sulfate/D5W 1 GM/100 ML Premix Bag IV ONE ×3 (09:45→12:26)
[2022-04-11] MEDS ORDERED: Sodium Chloride 0.9% 10 ML Syringe FLUSH PRN (09:48)
[2022-04-11] MEDS ORDERED: Non-Formulary Medication 1 Each (Magnesium Oxide [Magnesium Oxide] 400 MG Tablet) PO SCH (20:00)
[2022-04-11] MEDS: Magnesium Oxide 400 MG Tab PO SCH (20:42)
[2022-04-12] MEDS ORDERED: Sodium Chloride 0.9% 500 ML IV ONE (01:15)
[2022-04-12] MEDS ORDERED: diphenhydrAMINE 50 MG Cap PO ONE (01:55)
[2022-04-12] MEDS ORDERED: Metoprolol Succinate 25 MG Tab.ER PO ONE ×2 (01:57→02:11)
[2022-04-12] MEDS ORDERED: Ondansetron 4 MG/2 ML SDV IVPUSH PRN (02:36)
[2022-04-12] MEDS ORDERED: Ondansetron 4 MG Tab.DIS ONE (02:37)
[2022-04-12] MEDS ORDERED: Levothyroxine 25 MCG Tab PO SCH (07:00)
[2022-04-12] MEDS ORDERED: Omeprazole 20 MG Cap.CR ONE (07:56)
[2022-04-12] MEDS ORDERED: Metoprolol Succinate 25 MG Tab.ER ONE (07:56)
[2022-04-12] MEDS ORDERED: Thiamine 100 MG Tab ONE (07:56)
[2022-04-12] MEDS ORDERED: Simvastatin 20 MG Tab ONE (07:56)
[2022-04-12] MEDS ORDERED: Folic Acid 1 MG Tab ONE (07:56)
[2022-04-12] MEDS ORDERED: Cyanocobalamin (Vitamin B12) 1,000 MCG Tab ONE (07:57)
[2022-04-12] MEDS: Magnesium Oxide 400 MG Tab PO SCH (07:59)
[2022-04-12] MEDS ORDERED: Non-Formulary Medication 1 Each (Cyanocobalamin (Vitamin B-12) [Vitamin B-12] 1,000 MCG Ta PO SCH (08:00)
[2022-04-12] MEDS ORDERED: Non-Formulary Medication 1 Each (Omeprazole [Omeprazole] 20 MG Capsule.Dr) PO SCH (08:00)
[2022-04-12] MEDS ORDERED: Non-Formulary Medication 1 Each (Folic Acid [Folic Acid] 1 MG Tablet) PO SCH (08:00)
[2022-04-12] MEDS ORDERED: Non-Formulary Medication 1 Each (Simvastatin [Simvastatin] 40 MG Tablet) PO SCH (08:00)
[2022-04-12] MEDS ORDERED: Warfarin 2.5 MG Tab PO SCH (08:00)
[2022-04-12] MEDS ORDERED: Warfarin 5 MG Tab PO SCH (08:00)
[2022-04-12] MEDS ORDERED: THIAMINE 100 MG PO SCH (08:00)
[2022-04-12] MEDS ORDERED: Non-Formulary Medication 1 Each (Metoprolol Succinate [Metoprolol Succinate] 50 MG Tab.Er. PO SCH (08:00)
[2022-04-12] MEDS ORDERED: Metoprolol Tartrate 25 MG Tab PO ONE (08:38)
[2022-04-12] MEDS ORDERED: Magnesium Sulfate/D5W 1 GM/100 ML Premix Bag IV ONE ×2 (10:50→10:51)
[2022-04-12 13:43] VITALS: BP 103/59; PULSE 68
[2022-04-12] MEDS ORDERED: Simvastatin 40 MG Tab PO SCH (20:00)
[2022-04-13] MEDS ORDERED: Metoprolol Succinate 25 MG Tab.ER PO SCH (08:00)
[2022-04-13] MEDS ORDERED: Folic Acid 1 MG Tab PO SCH (08:00)
[2022-04-13] MEDS ORDERED: Cyanocobalamin (Vitamin B12) 1,000 MCG Tab PO SCH (08:00)
[2022-04-13] MEDS ORDERED: Omeprazole 20 MG Cap.CR PO SCH (08:00)
[2022-04-13] MEDS ORDERED: Thiamine 100 MG Tab PO SCH (08:00)
== END 2022-04-12 14:40 | disposition home or self-care (01) | DRG 641 ==
LOC: LB.ED 08:26 → LB.MS 10:01
PROVIDERS: ADMIT Physician Assistant; ATTEND Physician Assistant
DX: E83.42 Hypomagnesemia (principal); H54.7 Unspecified visual loss; I10 Essential (primary) hypertension; Z86.74 Personal history of sudden cardiac arrest; I48.91 Unspecified atrial fibrillation; K21.9 Gastro-esophageal reflux disease without esophagitis; R56.9 Unspecified convulsions; Z96.612 Presence of left artificial shoulder joint; Z87.01 Personal history of pneumonia (recurrent); M19.90 Unspecified osteoarthritis, unspecified site; G40.909 Epilepsy, unspecified, not intractable, without status epilepticus; E03.9 Hypothyroidism, unspecified; Z85.828 Personal history of other malignant neoplasm of skin; Z79.01 Long term (current) use of anticoagulants; Z79.890 Hormone replacement therapy; Z79.899 Other long term (current) drug therapy; Z20.822 Contact with and (suspected) exposure to COVID-19
CPT/HCPCS: 36415; 80048; 83735; 84443; 85610; 93005; 96374; 99285-25; A9270-GY; J3475; J7030; Q0162; U0002

== ENCOUNTER 2024-04-21 15:15 | Emergency (ER) | payer MEDICARE, OTHER ==
[2024-04-21] MEDS ORDERED: Sodium Chloride 0.9% 10 ML Syringe FLUSH PRN (16:13)
[2024-04-21 17:02] LABS: BASOPHILS ABSOLUTE AUTO 0.02 K/uL (0.02-0.10); BASOPHILS PERCENT AUTO 0.3 % (0.0-0.5); EOSINOPHILS ABSOLUTE AUTO 0.12 K/uL (0.04-0.40); HEMATOCRIT 35.6 % (40.0-54.0); HEMOGLOBIN 11.6 g/dL (13.0-18.0); LYMPHOCYTES ABSOLUTE AUTO 2.26 K/uL (1.50-4.00); LYMPHOCYTES PERCENT AUTO 37.3 % (20.0-40.0); MEAN CORPUSCULAR HGB CONC 32.6 g/dL (31.0-35.0); MEAN CORPUSCULAR VOLUME 101 fL (76-96); MEAN PLATELET VOLUME 11.7 fL (6.0-10.0); MONOCYTES ABSOLUTE AUTO 0.71 K/uL (0.20-0.80); MONOCYTES PERCENT AUTO 11.7 % (3.0-10.0); NEUTROPHILS ABSOLUTE AUTO 2.95 K/uL (2.00-7.50); NEUTROPHILS PERCENT AUTO 48.7 % (45.0-70.0); PLATELET COUNT,PLT 173 K/uL (150-400); RED BLOOD CELL COUNT 3.52 M/uL (4.50-6.50); WHITE BLOOD CELL COUNT,WBC 6.1 K/uL (4.0-11.0)
[2024-04-21 17:17] LABS: INR 2.8 (1.0-3.5); PTT,PARTIAL THROMBOPLSTIN TIME 33.9 SECONDS (24.4-33.2)
[2024-04-21 17:19] LABS: PROTHROMBIN TIME 27.4 sec (9.0-11.5)
[2024-04-21 17:28] LABS: TROPONIN I HIGH SENSITIVITY 14.1 pg/ml (<=60.4)
[2024-04-21 17:36] LABS: APPEARANCE,URINE SLIGHTLY CLOUDY (CLEAR); BILIRUBIN,URINE NEGATIVE (NEGATIVE); COLOR,URINE YELLOW; GLUCOSE,URINE NEGATIVE (NEGATIVE); KETONES,URINE 15 mg/dL (NEGATIVE); LEUKOCYTE ESTERASE,URINE TRACE (NEGATIVE); NITRITE,URINE NEGATIVE (NEGATIVE); OCCULT BLOOD,URINE NEGATIVE (NEGATIVE); PH,URINE 5.5 (5.0-8.0); PROTEIN,URINE NEGATIVE (NEGATIVE); UROBILINOGEN,URINE 0.2 E.U./dL (0.2-1.0)
[2024-04-21 17:40] LABS: A/G RATIO 1.1 (0.8-2.0); ALBUMIN 3.6 g/dL (3.4-5.0); ANION GAP 17.9 mmol/L (5.0-15.0); BILIRUBIN TOTAL 1.1 mg/dL (0.0-1.0); BUN/CREATININE RATIO 30.5 (6-25); CARBON DIOXIDE,CO2 20.4 mmol/L (21.0-32.0); CREATININE 1.28 mg/dL (0.70-1.30); EST CRCL DRUG DOSING (CG) 33.64 mL/min; POTASSIUM,K 4.3 mmol/L (3.5-5.1); PROTEIN TOTAL,TP 6.9 g/dL (6.4-8.2); TSH ULTRASENSITIVE 3.925 uIU/mL (0.358-3.740)
[2024-04-21 17:43] LABS: INFLUENZA A NAA NEGATIVE (NEGATIVE); INFLUENZA B NAA NEGATIVE (NEGATIVE); RESPIRATORY SYNCYTIAL VIR NAA NEGATIVE (NEGATIVE)
[2024-04-21 17:44] LABS: RBC,URINE 0-5 /HPF
[2024-04-21 17:45] LABS: SQUAMOUS EPITHELIAL CELLS,UR OCCASIONAL /HPF
[2024-04-21 17:46] LABS: CORONAVIRUS COVID-19 NAA NEGATIVE (NEGATIVE)
[2024-04-21 18:42] VITALS: BP 127/80; PULSE 95
[2024-04-23] MEDS: Sodium Chloride 0.9% 1,000 ML IV ONE (10:24)
== END 2024-04-21 18:15 | disposition home or self-care (01) ==
LOC: LB.ED 15:15
DX: E86.0 Dehydration (principal); I48.91 Unspecified atrial fibrillation; I10 Essential (primary) hypertension; K21.9 Gastro-esophageal reflux disease without esophagitis; E03.9 Hypothyroidism, unspecified; Z79.899 Other long term (current) drug therapy; Z79.01 Long term (current) use of anticoagulants; Z86.19 Personal history of other infectious and parasitic diseases; Z87.891 Personal history of nicotine dependence
CPT/HCPCS: 0241U; 36415; 71045; 80053; 81001; 83605; 83735; 83880; 84443; 84484; 85025; 85379; 85610; 85730; 93005; 99285

== ENCOUNTER 2024-05-11 12:17 | Emergency (ER) | payer MEDICARE, OTHER ==
[2024-05-11 12:44] LABS: BASOPHILS ABSOLUTE AUTO 0.01 K/uL (0.02-0.10); BASOPHILS PERCENT AUTO 0.1 % (0.0-0.5); LYMPHOCYTES ABSOLUTE AUTO 0.66 K/uL (1.50-4.00); LYMPHOCYTES PERCENT AUTO 9.6 % (20.0-40.0); MEAN CORPUSCULAR HGB CONC 32.9 g/dL (31.0-35.0); MEAN CORPUSCULAR VOLUME 94 fL (76-96); MEAN PLATELET VOLUME 11.1 fL (6.0-10.0); MONOCYTES ABSOLUTE AUTO 0.44 K/uL (0.20-0.80); MONOCYTES PERCENT AUTO 6.4 % (3.0-10.0); NEUTROPHILS ABSOLUTE AUTO 5.74 K/uL (2.00-7.50); NEUTROPHILS PERCENT AUTO 83.9 % (45.0-70.0); PLATELET COUNT,PLT 152 K/uL (150-400); RED CELL DISTRIBUTION WIDTH 13.1 % (11.0-16.0); WHITE BLOOD CELL COUNT,WBC 6.9 K/uL (4.0-11.0)
[2024-05-11 12:45] LABS: HEMATOCRIT 25.8 % (40.0-54.0); HEMOGLOBIN 8.5 g/dL (13.0-18.0); RED BLOOD CELL COUNT 2.74 M/uL (4.50-6.50)
[2024-05-11 12:53] LABS: INR 2.6 (1.0-3.5); PTT,PARTIAL THROMBOPLSTIN TIME 51.5 SECONDS (24.4-33.2)
[2024-05-11 12:55] LABS: A/G RATIO 0.8 (0.8-2.0); ALBUMIN 2.7 g/dL (3.4-5.0); ANION GAP 16.6 mmol/L (5.0-15.0); BILIRUBIN TOTAL 0.9 mg/dL (0.0-1.0); BUN/CREATININE RATIO 27.6 (6-25); CALCIUM 7.8 mg/dL (8.5-10.1); CARBON DIOXIDE,CO2 20.4 mmol/L (21.0-32.0); CREATININE 1.23 mg/dL (0.70-1.30); EST CRCL DRUG DOSING (CG) 35.26 mL/min; MAGNESIUM 1.4 mg/dL (1.8-2.4); PHOSPHORUS 2.5 mg/dL (2.5-4.9); PROTEIN TOTAL,TP 6.2 g/dL (6.4-8.2); PROTHROMBIN TIME 25.9 sec (9.0-11.5)
[2024-05-11] MEDS: Pantoprazole 80 MG in Sodium Chloride 0.9% 100 ML IV ONE (13:04)
[2024-05-11 13:33] LABS: APPEARANCE,URINE CLEAR (CLEAR); BILIRUBIN,URINE NEGATIVE (NEGATIVE); COLOR,URINE YELLOW; GLUCOSE,URINE NEGATIVE (NEGATIVE); KETONES,URINE 15 mg/dL (NEGATIVE); LEUKOCYTE ESTERASE,URINE NEGATIVE (NEGATIVE); NITRITE,URINE NEGATIVE (NEGATIVE); OCCULT BLOOD,URINE NEGATIVE (NEGATIVE); PH,URINE 5.5 (5.0-8.0); PROTEIN,URINE NEGATIVE (NEGATIVE); UROBILINOGEN,URINE 0.2 E.U./dL (0.2-1.0)
[2024-05-11] MEDS: Phytonadione 10 MG in Sodium Chloride 0.9% 50 ML IV ONE (13:55)
[2024-05-11] MEDS: Pantoprazole 80 MG in Sodium Chloride 0.9% 100 ML IV SCH (16:29)
[2024-05-11] MEDS: Pantoprazole 40 MG Vial ONE (16:35)
[2024-05-11 17:22] VITALS: BP 109/69; PULSE 94
[2024-05-14 22:35] LABS: FIBRINOGEN 565 mg/dL (150-430)
== END 2024-05-11 16:36 ==
LOC: LB.ED 12:17
DX: K92.2 Gastrointestinal hemorrhage, unspecified (principal); I10 Essential (primary) hypertension; E03.9 Hypothyroidism, unspecified; Z79.890 Hormone replacement therapy; Z79.01 Long term (current) use of anticoagulants; Z79.899 Other long term (current) drug therapy; Z87.891 Personal history of nicotine dependence
CPT/HCPCS: 36415; 36430; 80053; 81003; 83735; 84100; 85025; 85384; 85610; 85730; 86850; 86900; 86901; 86920; 86922; 96365; 96367; 99285; A0425; A0428; C9113; J3430; J3490; P9016; P9017